=== PATIENT | female | born 1990 | race Two or more races ===

== ENCOUNTER 2024-12-21 04:04 | Emergency (ER) | payer OTHER ==
[~2024-12-21] VITALS: Ht 162.6 cm; Wt 113.4 kg
[2024-12-21] MEDS ORDERED: KETOROLAC TROMETHAMINE INJ 30 MG/ML VIAL ONE (04:55)
[2024-12-21] MEDS: KETOROLAC TROMETHAMINE INJ 30 MG/ML VIAL IM ONE (05:03)
[2024-12-21 05:24] VITALS: BP 143/93; TEMP 98.7; O2SAT 99
== END 2024-12-21 05:29 ==
LOC: ER 04:06
DX: T14.8XXA Other injury of unspecified body region, initial encounter (principal); M25.512 Pain in left shoulder; M25.532 Pain in left wrist; Z60.2 Problems related to living alone; X58.XXXA Exposure to other specified factors, initial encounter; Y93.89 Activity, other specified; Y92.89 Other specified places as the place of occurrence of the external cause; Y99.8 Other external cause status
CPT/HCPCS: 99283; 96372; 73030; J1885